=== PATIENT | male | born 1955 ===

== ENCOUNTER 2017-08-18 07:15 | Emergency (ER) | payer SELFPAY ==
[2017-08-18 07:28] VITALS: BP 124/82
--- NOTE | 2017-08-18 08:20 | RAD ---
INDICATION: Right elbow pain after a fall COMPARISON: None. TECHNIQUE: 4 views right elbow. REPORT: The visualized bones of the right elbow are well corticated and properly aligned. There is no radiographically apparent fracture or dislocation. There is no radiographic evidence of pathologic joint effusion. IMPRESSION: Normal radiograph of the right elbow. If the patient's symptoms persist further follow-up imaging is recommended.
--- NOTE | 2017-08-18 08:57 | UC ---
Elbow Pain - HPI Summary HPI Summary: RIGHT ELBOW PAIN AFTER CATCHING HIMSELF ON TRUCK, HEARD POP IN ELBOW. LIMITED RANGE OF MOTION, PAIN WITH FLEXION AND EXTENSION. NO PREVIOUS INJURY. NO SHOULDER OR WRIST PAIN. - History of Current Complaint Hx Obtained From: Patient Onset/Duration: Hours, Traumatic, Still Present Severity Initially: Moderate Severity Currently: Moderate Pain Intensity: 5 Pain Scale Used: 0-10 Numeric Location Of Pain: Is Discrete @ - RIGHT ELBOW Character: Dull, Aching, Spasmodic, Stiffness Aggravating Factor(s): Movement, Pulling, Twisting Alleviating Factor(s): Rest, Immobilization Associated Signs And Symptoms: Positive: Negative <Cristian Monzon - Last Filed: 08/18/17 08:52> <Bee Ca - Last Filed: 08/18/17 09:41> - History of Current Complaint Chief Complaint: UCUpperExtremity Stated Complaint: ELBOW INJURY Time Seen by Provider: 08/18/17 08:02 - Allergies/Home Medications Allergies/Adverse Reactions: Allergies Allergy/AdvReac Type Severity Reaction Status Date / Time Codeine Allergy See Comment Verified 08/18/17 07:24 Home Medications: Home Medications Amlodipine Besylate [Norvasc 2.5 mg tab] 08/18/17 [History] Lisinopril [Lisinopril 30 MG-] 08/18/17 [History] PMH/Surg Hx/FS Hx/Imm Hx Previously Healthy: Yes - Surgical History Surgical History: Yes Surgery Procedure, Year, and Place: tonsillectomy - Family History Known Family History: Negative: Other - NO JOINT LAXITY - Social History Occupation: Employed Full-time Alcohol Use: None Substance Use Type: None Smoking Status (MU): Former Smoker <Cristian Monzon - Last Filed: 08/18/17 08:52> Review of Systems Constitutional: Negative Skin: Negative Eyes: Negative ENT: Negative Respiratory: Negative Cardiovascular: Negative Gastrointestinal: Negative Genitourinary: Negative Motor: Decreased ROM - RIGHT ELBOW Neurovascular: Negative Musculoskeletal: Arthralgia, Decreased ROM - RIGHT ELBOW, Myalgia Neurological: Negative Psychological: Negative Is Patient Immunocompromised?: No All Other Systems Reviewed And Are Negative: Yes <Cristian Monzon - Last Filed: 08/18/17 08:52> Physical Exam Triage Information Reviewed: Yes Appearance: Well-Appearing, Well-Nourished, Pain Distress - MILD Vital Signs: Initial Vital Signs Temp 98 F 08/18/17 07:25 Pulse 78 08/18/17 07:25 Resp 16 08/18/17 07:25 BP 124/82 08/18/17 07:25 Pulse Ox 99 08/18/17 07:25 Vital Signs Reviewed: Yes Eye Exam: Normal ENT Exam: Normal ENT: Positive: Normal ENT inspection, TMs normal Dental Exam: Normal Neck exam: Normal Neck: Positive: Supple, Nontender, No Lymphadenopathy Respiratory Exam: Normal Respiratory: Positive: Chest non-tender, Lungs clear, Normal breath sounds, No respiratory distress, No accessory muscle use Cardiovascular Exam: Normal Cardiovascular: Positive: RRR, No Murmur, Pulses Normal Abdominal Exam: Normal Musculoskeletal: Positive: No Edema, Strength Limited @ - RIGHT ELBOW, ROM Limited @ - RIGHT ELBOW Neurological Exam: Normal Psychological Exam: Normal Skin Exam: Normal <Cristian Monzon - Last Filed: 08/18/17 08:52> Vital Signs: Initial Vital Signs Temp 98 F 08/18/17 07:25 Pulse 78 08/18/17 07:25 Resp 16 08/18/17 07:25 BP 124/82 08/18/17 07:25 Pulse Ox 99 08/18/17 07:25 <Bee Ca - Last Filed: 08/18/17 09:41> Elbow Pain Course/Dx - Differential Dx/Diagnosis Differential Diagnosis/HQI/PQRI: Fracture (Closed), Sprain, Strain Provider Diagnoses: RIGHT ELBOW SPRAIN <Cristian Monzon - Last Filed: 08/18/17 08:52> Discharge <Cristian Monzon - Last Filed: 08/18/17 08:52> <Bee Ca - Last Filed: 08/18/17 09:41> - Discharge Plan Condition: Stable Disposition: HOME Patient Education Materials: Elbow Sprain (ED) Forms: *Work Release Referrals: Zhou Rae MD [Primary Care Provider] - Hesham Ward MD [Medical Doctor] - Additional Instructions: PHYSICAL THERAPY REFERRAL: You have been prescribed physical therapy. Treatments may include stretching, exercise, application of heat or cold, and other modalities. After an injury, PT can reduce swelling and pain. In recovery, PT is used to restore mobility and strength. Your specific treatment goals are: ___x__ Reduction of Swelling (EGS, US, ice as needed) __x___ Pain Reduction (EGS, US, ice as needed) __x___ TENS Pack Fitting and Instruction Wound Hydrotherapy ___x__ Preservation of Mobility ___x__ Alevism of Mobility x Strength Alevism ___x__ Work or Sports Hardening This instruction sheet also serves as your PHYSICAL THERAPY REFERRAL! Please take it with you to the therapist, so he/she will be aware of your diagnosis and treatment plan. You may see the physical therapist of your choice for these treatments, but may wish to check with your insurance to be sure the provider you select is covered. It's important to see the doctor to whom you have been referred for follow up. Attestation Statement User Type: Provider - I was available for consult. This patient was seen by the [facility]NE[facility]. The patient was not presented to, seen by, or examined by me. -Will <Bee Ca - Last Filed: 08/18/17 09:41>
== END 2017-08-18 08:37 | disposition home or self-care (01) ==
LOC: UCEAST 07:15
DX: S53.401A Unspecified sprain of right elbow, initial encounter (principal); X58.XXXA Exposure to other specified factors, initial encounter; Y93.9 Activity, unspecified; Y92.89 Other specified places as the place of occurrence of the external cause; Y99.0 Civilian activity done for income or pay; Z88.5 Allergy status to narcotic agent; Z87.891 Personal history of nicotine dependence
CPT/HCPCS: 99212; G0463